=== PATIENT | female | born 1945 | race Caucasian/White ===

== ENCOUNTER 2025-09-06 10:32 | Day surgery (SDC) | payer MEDICARE, BC ==
[2025-09-06] MEDS ORDERED: Sodium Chloride 0.9(Preservative Free) 10 ML IJ ONE (10:33)
[2025-09-06] MEDS ORDERED: methylPREDNISolone acetate IM ONE (10:33)
[2025-09-06] MEDS ORDERED: Lactated Ringers 1,000 ML IV ONE (11:31)
[2025-09-06] MEDS ORDERED: propofoL IV ONE (12:58)
--- NOTE | 2025-09-06 13:55 | XRAY ---
Indication: Caudal DORIS. Intraoperative fluoroscopy provided for 9 seconds. 2 digital spot image submitted for interpretation demonstrates caudal needle tip projecting mid sacrum. Small amount of contrast injected for needle tip placement. Correlate with intraoperative findings/report.
--- NOTE | 2025-09-06 14:53 | XRAY ---
9 seconds of fluoroscopy was used in surgery for a caudal DORIS.
== END 2025-09-06 13:31 | disposition home or self-care (01) ==
LOC: SDC-PAIN 10:32
PROVIDERS: ATTEND Psychiatry & Neurology Pain Medicine
DX: M54.16 Radiculopathy, lumbar region (principal)